=== PATIENT | female | born 1945 | race Two or more races ===

== ENCOUNTER 2024-04-17 19:22 | Emergency (ER) | payer OTHER ==
[~2024-04-17] VITALS: Ht 149.9 cm; Wt 52.6 kg
[2024-04-17 19:32] VITALS: BP 166/72; O2SAT 97
[2024-04-17] MEDS ORDERED: AMLODIPINE BESY10 MG (19:33)
[2024-04-17] MEDS ORDERED: DIOVAN160 M1 (19:34)
[2024-04-17 21:30] LABS: HEMATOCRIT 46.9 % (36.0-45.00); HEMOGLOBIN 15.9 g/dL (12.0-15.00); MEAN CELL VOLUME 77.5 fL (80.00-100.00); MEAN CORPUSCULAR HEMOGLOBIN 26.2 pg (27.00-32.0); MEAN CORPUSCULAR HGB CONC 33.8 g/dl (32.0-36.0); PLATELET COUNT 219 K/uL (150-450); RED BLOOD COUNT 6.05 M/uL (4.00-6.00)
[2024-04-17 21:35] LABS: ALBUMIN 3.9 gm/dL (3.4-5.0); BILIRUBIN TOTAL 0.27 mg/dL (0.3-1.2); CALCIUM 9.4 mg/dL (8.5-10.1); CREATININE SERUM 1.03 mg/dL (0.55-1.02); GFR 51.82; GLOBULINA 4.3 G/DL (2.4-3.5); POTASSIUM 4.22 mEq/L (3.5-5.1); TOTAL PROTEIN 8.2 gm/dL (6.4-8.2)
== END 2024-04-17 22:56 | disposition home or self-care (01) ==
LOC: ER 19:22
DX: R51.9 Headache, unspecified (principal); Z91.041 Radiographic dye allergy status; I10 Essential (primary) hypertension; M81.8 Other osteoporosis without current pathological fracture